=== PATIENT | male | born 1980 | race Caucasian/White ===

== ENCOUNTER 2023-03-31 23:40 | Emergency (ER) | payer OTHER, SELFPAY ==
--- NOTE | ~2023-03-31 | XR_ITS ---
Portable chest x-ray Comparison: None Clinical History: PICC line placement Findings: Left-sided PICC line is in place, tip in the SVC. Lungs are clear, without focal consolida tion or pleural effusion. Cardiomediastinal silhouette is unremarkable. Bones and soft tissues are u nremarkable. Impression: Left-sided PICC line in satisfactory position, as above. Clear lungs. Reviewed, dictated and finalized at location M. Impression: Left-sided PICC line in satisfactory position, as above. Clear lungs.
[2023-03-31 23:45] VITALS: BP 123/79; PULSE 94; RESP 14; TEMP 36.7; O2SAT 98
--- NOTE | 2023-03-31 23:59 | ED.GENADULT ---
HPI - General Adult General Chief complaint: Unspecified <Thomas Jansen PA-C - Last Filed: 04/01/23 19:34> Stated complaint: pain? <Thomas Jansen PA-C - Last Filed: 04/01/23 19:34> Time Seen by Provider: 03/31/23 23:49 <Thomas Jansen PA-C - Last Filed: 04/01/23 19:34> Source: patient <BELLA Drummond Last Filed: 04/01/23 19:34> Mode of arrival: EMS <BELLA Drummond Last Filed: 04/01/23 19:34> Limitations: no limitations <Thomas Jansen PA-C - Last Filed: 04/01/23 19:34> History of Present Illness HPI narrative: This is a 42-year-old male who presents to the ED via EMS with chief complaint of right wrist pain onset x2 weeks and worse tonight. He is about 2 weeks status post right wrist debridement for an infection. This was done on [facility]. He is coming to the ED from [facility] where he has been getting physical therapy, IV Rocephin through a PICC line and Suboxone treatment. He states the pain is worse today so he wanted to go to the ER. <Thomas Jansen PA-C - Last Filed: 04/01/23 19:34> Related Data Allergies/adverse reactions: Allergies Allergy/AdvReac Type Severity Reaction Status Date / Time No Known Allergies Allergy Verified 03/31/23 23:50 <Thomas Jansen PA-C - Last Filed: 04/01/23 19:34> Exam Narrative: GENERAL: Well-appearing, well-nourished, and in no acute distress. HEAD: Normocephalic, atraumatic. EYES: PERRLA and EOMI. ENT: Nares clear, no rhinorrhea or epistaxis. Mucous membranes moist. Oropharynx without tonsillar hypertrophy exudate or other lesions. NECK: Supple. No adenopathy or masses. CHEST: No respiratory distress. Clear to auscultation. No wheezes rales or rhonchi HEART: Regular rate and rhythm. No murmur heard. Normal peripheral pulses. ABDOMEN: Soft, nontender, nondistended, normal active bowel sounds. MSK: RUE: Wrist is initially wrapped in Kerlix and Dain wrap. Under the wrap. Soft compartments. Surgical wound site to the dorsal wrist looks intact. No drainage. No erythema. No bruising. Mild tenderness to the dorsum of the wrist. Active and passive range of motion markedly reduced. Neurovascularly intact distally. LUE: PICC line in place. Left arm is benign.. MSK exam is otherwise intact. He is ambulatory. Normal range of motion. No edema. SKIN: Warm, dry, no rash. NEURO: Alert and oriented x3. No focal deficits. PSYCH: Normal mood and affect. <Thomas Jansen PA-C - Last Filed: 04/01/23 19:34> Course OCCUPATIONAL THER/PA Physician Supervision For this patient encounter, I reviewed the OCCUPATIONAL THER or PA documentation, treatment plan, and medical decision making; and I had [id number] time with this patient. <Marcelino Flores MD - Last Filed: 04/06/23 07:30> Vital Signs Vital signs: Vital Signs Temperature 98.0 F 03/31/23 23:45 Pulse Rate 94 03/31/23 23:45 Respiratory Rate 14 03/31/23 23:45 Blood Pressure 123/79 03/31/23 23:45 Pulse Oximetry 98 03/31/23 23:45 Oxygen Delivery Room Air 03/31/23 23:45 Temperature 98.0 F 03/31/23 23:45 Pulse Rate 94 03/31/23 23:45 Respiratory Rate 14 03/31/23 23:45 Blood Pressure 123/79 03/31/23 23:45 Pulse Oximetry 98 03/31/23 23:45 Oxygen Delivery Room Air 03/31/23 23:45 <Thomas Jansen PA-C - Last Filed: 04/01/23 19:34> Vital Signs Temperature 98.0 F 03/31/23 23:45 Pulse Rate 94 03/31/23 23:45 Respiratory Rate 14 03/31/23 23:45 Blood Pressure 123/79 03/31/23 23:45 Pulse Oximetry 98 03/31/23 23:45 Oxygen Delivery Room Air 03/31/23 23:45 Temperature 98.0 F 06/29/23 23:45 Pulse Rate 94 03/31/23 23:45 Respiratory Rate 14 03/31/23 23:45 Blood Pressure 123/79 03/31/23 23:45 Pulse Oximetry 98 03/31/23 23:45 Oxygen Delivery Room Air 03/31/23 23:45 <Marcelino Flores MD - Last Filed: 04/06/23 07:30> Medical Decision Making MDM Narrative Medical decision making narrati
[2023-04-01] MEDS: KETOROLAC 30 MG/ML VIAL (*BKC) IV PUSH (00:42)
== END 2023-04-01 04:47 ==
LOC: ANHED 04-01 00:13
PROVIDERS: Emergency Provider Physician Assistant
DX: M25.531 Pain in right wrist (principal)
CPT/HCPCS: 71045; 96374; 99284; A4565; J1885